=== PATIENT | female | born 1960 | race Caucasian/White ===

== ENCOUNTER 2017-05-27 13:30 | Outpatient (RCR) | payer MEDICAID, SELFPAY ==
--- NOTE | 2017-05-16 17:18 | HP.PTEVAL_ITS ---
Patient's Visit Information JOSE DEGROOT is a 57 year old F referred to Physical Therapy by MD MARICRUZ Cifuentes with a diagnosis of spinal stenosis, lumbar disc degeneration, and R knee pain. Date of Evaluation: 05/16/17 Physical Therapist: Rojas Madrid - Visit Plan Frequency: 2x /Week Duration: 4 Weeks Plan: Start with core strengthening in aquatic setting, hip strengthening, quad strengthening as tolerated. Pt. - Subjective Subjective: Pt. is here today for her initial evaluation with diagnosis spinal stenosis (lumbar sacral region), lumbar disc degeneration, and R knee pain. Pt. reports having LBP 30+ years, and her R knee started ~18 years ago when she fell downs her stairs. She did not have insurance at the time and did not walk for 6 weeks. Pt. was ulitmately able to walk, but has been trouble since. Pt. has increased symptoms with standing, walking; worst with walking. Pt. has decreased pain with sitting. No other position is helpful. Pt. reports also having R knee pain which has 90% resolved since having injection. She does have lateral popping with bending and straightening her knee. Pt. reports she has had talked about possibly needing surgery on her back. Pt. has yet to talk with surgeon about this. Pt. is to follow up with her orthopedic next week. Pt. is hopeful to reduce symptoms in order to tolerate all recreational and household activities without limitations. - Pain lumbar spine Pain Intensity (Out of 10): 8 Pain Intensity Range: 5, 10 BLEs Pain Intensity (Out of 10): 5 Pain Intensity Range: 3, 10 lateral R knee Pain Intensity (Out of 10): 2 Pain Intensity Range: 1, 6 - Objective POSTURE: Pt. has reduced lumbar lordosis, rounded shoulders, she has R lateral pelvic positioning with trunk correction. Pt. has increased L wt. shift. PALPATION: Pt. has increased tenderness throughout lumbar spine and SI region bilaterally. Pt. has increased pain at inferior/lateral aspect of R knee. Pt. has mild tenderness at distal insertion of IT band. NEUROLOGICAL: Pt. has normal sensation troughout bilateral LEs, but does have peripheral neuropathy. Pt. has 2+ achilles and patellar DTR bilaterally. Pt. is able rise on heels and toes, slight weakness on R G/S complex with balance aide assistance. ROM: LUMBAR SPINE: nil loss NE, ext max loss increase NW, SB min/mod loss bilat increase NW, rotation min/mod loss bilat increase NW. Pt. has normal hip ROM bilaterally. R knee 0-3-118deg. L knee 0-0-125deg. MMT: RLE- ankle- PF 4+/5; DF 4/5; knee- ext 4+/5, flexion 4/5; hip- flexion 4/5 increase NW, abd 4/5 increase NW, ext 4/5 increase NW. LLE- ankle 5/5 throughout; knee- ext 4+/5, flexion 4+/5; hip- flexion 4+/5, abd 4/5, ext 4/5. Core stength poor. GAIT: Pt. ambulates without AD. Pt. has flexed posture throughout; decreased step length and tempo. Pt. reports increased pain with attempts to increase erect posture. STAIRS: Pt. negotiates with 2 HR with step to pattern loading. - Special Tests L/S Slump test left side: Negative L/S Slump test right side: Negative L/S Left Straight Leg Raise: Negative L/S Right Straight Leg Raise: Negative Lumbar Standing: Flexion - Mechanical Response: No effect Lumbar Standing: Flexion - Symptoms During Testing: Decreases Lumbar Standing: Flexion - Symptoms After Testing: No better Lumbar Standing: Extension - Mechanical Response: No effect Lumbar Standing: Extension - Symptoms During Testing: Increases Lumbar Standing: Extension - Symptoms After Testing: Worse Lumbar Standing: Right Side Glides - Mechanical Response: No effect Lumbar Standing: Right Side [place] - Symptoms During Testing: Increases Lumbar Standing: Right Side [place] - Symptoms After Testing: No worse Lumbar Standing: Left Side [place] - Mechanical Response: No effect Lumbar Standing: Left Side [place] - Symptoms During Testing: Increases Lumbar Standing: Left Side [place] - Symptoms After Testing: No worse Lumbar Lying: Flexion - Mechanical Response: No effect Lumbar Lying: Flexion - Symptoms During Testing: No effect Lumbar Lying: Flexion - Symptoms After Testing: No effect Lumbar Static: Slouched Sit - Mechanical Response: No effect Lumbar Static: Slouched Sit - Symptoms During Testing: No effect Lumbar Static: Slouched Sit - Symptoms After Testing: No effect Lumbar Static: Sitting Erect - Mechanical Response: No effect Lumbar Static: Sitting Erect - Symptoms During Testing: Abolishes Lumbar Static: Sitting Erect - Symptoms After Testing: No worse R Knee Disco Test - Meniscus: Positive R Knee Charlie - ACL: Negative R Knee Valgus - MCL: Negative R Knee Varus - LCL: Negative R Knee Patellar Apprehension - PFS: Negative - Goals Goal 1:: Pt. to be I with HEP. Goal Time Frame: 4-6 Weeks Goal 2:: Pt. to ambulate for 10-15' with 0-3/10 pain allowing for increased tolerance to mobility within community. Goal Time Frame: 4-6 Weeks Goal 3:: Pt. to have increased core strength to fair- reducing stress applied to lumbar spine with all functional mobility. Goal Time Frame: 4-6 Weeks Goal 4:: Pt. to sleep with 0-2/10 pain allowing for increased quality of life. Goal Time Frame: 4-6 Weeks Goal 5:: Pt. to negotiate steps with 1 HR with recirpocal pattern with 0-3/10 pain allowing for increased independence with leaving/entering home. Goal Time Frame: 4-6 Weeks Goal 6:: Pt. to have increased BLE strength by 1/2 grade of all effected musculature. - Rehabilitation Potential Physical Therapy Diagnosis: Pt. has signs and symptoms consistent with lumbar spinal stenosis and R knee pain. Pt. has subsequent hypomobility, weakness, difficulty standing and walking and increased pain. Pt. would benefit from PT to increase core strength and decrease symptoms allowing for decreased stress applied to lumbar spine with all functional mobility. Rehabilitation Potential: Fair - Anticipated Interventions Patient/Client Instruction: Educate patient on: Condition, Plan of Care, Risk Factors, Benefits of Fitness Program For the Purpose of:: To improve health and function, To foster healthy habits, To improve decision making, To facilitate caregiver knowledge, To improve self management, To prevent re-injury, To improve ability to perform tasks related to life management, To improve tolerance to ADL's Therapeutic Exercise to Include: Strength training, Power training, Body mechanics, Postural training, Flexibilty training, In an aquatic setting, Active ROM, Dynamic Lumbar Stabilization, Singh Exercises For the Purpose of:: To decrease pain, To decrease swelling/inflammation, To increase ROM, To improve nutrient delivery to tissue, To increase oxygenation perfusion, To improve muscle performance and motor function, To improve ability to perform ADL's, To increase tolerance to activity/condition/position, To improve ability of physical actions for home/community/work/leisure, To improve gait and locomotor functions, To improve health of tissue, To decrease soft tissue restriction, To increase flexibility/ROM, To improve balance IF ES: Yes Cryotherapy (ice pack, ice massage): Yes Thermo therapy (hot pack): Yes Ultrasound (thermal/non thermal): Yes For the Purpose of:: To decrease pain, To decrease swelling/inflammation, To increase ROM, To improve nutrient delivery to tissue, To increase oxygenation perfusion Thank you for the opportunity to evaluate your patient. For Medicare and Medicare HMO plans, please review the plan of care and approve it. It will need to be FAXED BACK to us at [phone] for Medicare purposes. Please let me know if there are questions or concerns regarding this plan of care. Physician Signature: Date:
--- NOTE | 2017-10-30 10:11 | HP.PT.NRP ---
HP - Discharge Summary (1) - Patient Information JOSE DEGROOT was seen in my office for initial evaluation on 05/16/17. The following Plan of Care was established for this patient: Initial Frequency: 2x /Week Initial Duration: 4 Weeks - Anticipated Interventions Patient/Client Instruction: Educate patient on: Condition, Plan of Care, Risk Factors, Benefits of Fitness Program For the Purpose of:: To improve health and function, To foster healthy habits, To improve decision making, To facilitate caregiver knowledge, To improve self management, To prevent re-injury, To improve ability to perform tasks related to life management, To improve tolerance to ADL's Therapeutic Exercise to Include: Strength training, Power training, Body mechanics, Postural training, Flexibilty training, In an aquatic setting, Active ROM, Dynamic Lumbar Stabilization, Singh Exercises For the Purpose of:: To decrease pain, To decrease swelling/inflammation, To increase ROM, To improve nutrient delivery to tissue, To increase oxygenation perfusion, To improve muscle performance and motor function, To improve ability to perform ADL's, To increase tolerance to activity/condition/position, To improve ability of physical actions for home/community/work/leisure, To improve gait and locomotor functions, To improve health of tissue, To decrease soft tissue restriction, To increase flexibility/ROM, To improve balance IF ES: Yes Cryotherapy (ice pack, ice massage): Yes Thermo therapy (hot pack): Yes Ultrasound (thermal/non thermal): Yes For the Purpose of:: To decrease pain, To decrease swelling/inflammation, To increase ROM, To improve nutrient delivery to tissue, To increase oxygenation perfusion This patient was last seen in our office 05/27/17. Pertinent comments regarding their Physical therapy will appear below: Pt. was seen in aquatic setting for her lumbosacral pain. Pt. treatment focus was on core stability. Pt. contiuned to have higher levels of pain limiting her mobility. Pt. cancelled her last appointment then did not return to PT. Pt. has not been seen for ~4 months and will be DC from PT at this point in time. At this point I will be discontinuing this patient from physical therapy. I would be happy to see this patient again in the future if found appropriate by the physician. Thank you! Rojas Madrid
== END 2017-05-27 19:00 | disposition home or self-care (01) ==
LOC: PT 13:30
PROVIDERS: Family Provider Family Medicine; PCP Family Medicine; Visit Provider Specialist
DX: M48.07 Spinal stenosis, lumbosacral region (principal); M51.36 Other intervertebral disc degeneration, lumbar region; M25.561 Pain in right knee
CPT/HCPCS: 97113; 97162

== ENCOUNTER → 2017-11-11 12:58 | Outpatient (CLI) | payer MEDICAID, SELFPAY ==
--- NOTE | 2017-11-11 12:59 | RAD_ITS ---
STUDY: X-RAY - LUMBAR SPINE REASON FOR EXAM: Female, 57 years old. Low back pain TECHNIQUE: 4 view(s) of the lumbar spine were obtained. COMPARISON: None FINDINGS: There is straightening of the lumbar lordosis. There is scoliosis. There is a normal alignment of the vertebrae. There is multilevel endplate spondylosis of the lumbar vertebrae. There is multi-level degenerative disc disease with multi-level disc space narrowing. There are atherosclerotic vascular calcifications. The soft tissue structures are unremarkable. RAD/L/S Spine Min 4 Views IMPRESSION: Degenerative changes of the spine, as detailed above. There is mild straightening of the normal cervical lordosis. This can suggest neck strain. Electronically Signed: Ruiz Nichols MD at 17:03 EDT , Service support ,
== END ==
PROVIDERS: Family Provider Family Medicine; PCP Family Medicine; Referring Provider Orthopaedic Surgery; Visit Provider Orthopaedic Surgery
DX: M54.5 Low back pain (principal)
CPT/HCPCS: 72110